=== PATIENT | male | born 1980 ===

== ENCOUNTER 2018-02-02 14:32 | Emergency (ER) | payer BC ==
[2018-02-02] MEDS ORDERED: Albuterol 0.083% Inhal Sol (2.5 mg/3 mL) UD INH ONE (15:39)
[2018-02-02] MEDS ORDERED: Albuterol-Ipratrop 3 mg / 0.5 (3 ml) UD ONE (15:49)
[2018-02-02] MEDS ORDERED: Albuterol 0.083% Inhal Sol (2.5 mg/3 mL) UD ONE (15:59)
--- NOTE | 2018-02-02 16:15 | ED PDOC ---
HPI: Influenza Time Seen by Provider: 02/02/18 15:02 Chief Complaint: Cough, Cold, Congestion Chief Complaint (Provider): Cough, congestion History Per: Patient Exam Limitations: no limitations Symptoms include: denies: fever, vomiting, diarrhea, chest pain Additional complaint(s):: 37 year old male presents to the ED complaining of cough and congestion for a week with yellowish and whitish flem for about a week. Patient is also complaining of back pain when he coughs but denies chest pain, fever, vomiting, and diarrhea. He states he has a sore throat and his whole body aches. PCP: none provided Past Medical History Reviewed: Historical Data, Nursing Documentation, Vital Signs Vital Signs: Last Vital Signs Temp 98.4 F 02/02/18 14:49 Pulse 95 H 02/02/18 14:49 Resp 20 02/02/18 14:49 BP 132/80 02/02/18 14:49 Pulse Ox 97 02/02/18 14:49 - Medical History PMH: No Chronic Diseases - Surgical History Surgical History: No Surg Hx - Family History Family History: States: Unknown Family Hx - Social History Current smoker - smoking cessation education provided: Yes (half pack of cigarettes a day) - Home Medications Home Medications: Ambulatory Orders Medication Instructions Recorded Albuterol HFA [Ventolin HFA 90 1 - 2 puff IH Q4H PRN #1 bottle 02/02/18 mcg/actuation (8 g)] Azithromycin [Zithromax] 250 mg PO DAILY #6 tab 02/02/18 - Allergies Allergies/Adverse Reactions: Allergies Allergy/AdvReac Type Severity Reaction Status Date / Time naproxen [From Aleve] Allergy RASH Verified 02/02/18 14:49 Review of Systems ROS Statement: Except As Marked, All Systems Reviewed And Found Negative Constitutional: Positive for: Other (whole body ache). Negative for: Fever ENT: Positive for: Nose Congestion, Throat Pain (sore throat) Cardiovascular: Negative for: Chest Pain Respiratory: Positive for: Cough Gastrointestinal: Negative for: Vomiting, Diarrhea Musculoskeletal: Positive for: Back Pain (with cough) Physical Exam - Reviewed Nursing Documentation Reviewed: Yes Vital Signs Reviewed: Yes - Physical Exam Appears: Positive for: Non-toxic, No Acute Distress Head Exam: Positive for: ATRAUMATIC, NORMOCEPHALIC Skin: Positive for: Normal Color, Warm, Dry Eye Exam: Positive for: Normal appearance ENT: Positive for: Normal ENT Inspection Neck: Positive for: Normal, Painless ROM Cardiovascular/Chest: Positive for: Regular Rate, Rhythm. Negative for: Murmur Respiratory: Positive for: Wheezing (slight wheeze). Negative for: Respiratory Distress Gastrointestinal/Abdominal: Positive for: Normal Exam, Soft. Negative for: Tenderness Back: Positive for: Normal Inspection. Negative for: L CVA Tenderness, R CVA Tenderness Extremity: Positive for: Normal ROM Neurologic/Psych: Positive for: Alert, Oriented. Negative for: Motor/Sensory Deficits Medical Decision Making Medical Decision Making: Initial Impression: cough. r/o strep and flu Initial Plan: Chest X-ray Albuterol 2.5mg INH Throat culture Peak flow Influenza A B Stat Rapid strep 15:58 Chest X-ray FINDINGS: LUNGS: No active pulmonary disease. PLEURA: No significant pleural effusion identified. No pneumothorax apparent. CARDIOVASCULAR: Normal. OSSEOUS STRUCTURES: No significant abnormalities. VISUALIZED UPPER ABDOMEN: Normal. OTHER FINDINGS: None. IMPRESSION: No active disease. 16:30 Rapid strep results were negative and patient has no PE risk factors. Patient is positive for sick contacts. Scribe Attestation: Documented by Renato Bates acting as a scribe for Daniel Mcclure MD. Provider Scribe Attestation: All medical record entries made by the Scribe were at my direction and personally dictated by me. I have reviewed the chart and agree that the record accurately reflects my personal performance of the history, physical exam, medical decision making, and the department course for this patient. I have also personally directed, reviewed, and agree with the discharge instructions and disposition. - ECG O2 Sat by Pulse Oximetry: 97 (RA) Pulse Ox Interpretation: Normal Disposition - Clinical Impression Clinical Impression: Cough - Disposition Condition: IMPROVED Additional Instructions: follow up with your primary doctor in 2 days for reevaluation return to the ED with any worsening or concerning symptoms Prescriptions: Albuterol HFA [Ventolin HFA 90 mcg/actuation (8 g)] 1 - 2 puff IH Q4H PRN #1 bottle PRN Reason: Wheezing Azithromycin [Zithromax] 250 mg PO DAILY #6 tab Instructions: Cough in Adults Forms: [facility] (Libyan)
--- NOTE | 2018-02-02 16:15 | RAD ---
HISTORY: cough COMPARISON: No prior. TECHNIQUE: Chest PA and lateral FINDINGS: LUNGS: No active pulmonary disease. PLEURA: No significant pleural effusion identified. No pneumothorax apparent. CARDIOVASCULAR: Normal. OSSEOUS STRUCTURES: No significant abnormalities. VISUALIZED UPPER ABDOMEN: Normal. OTHER FINDINGS: None. IMPRESSION: No active disease.
[2018-02-02 17:27] VITALS: BP 125/84; PULSE 86; RESP 18; TEMP 99.1; O2SAT 96
== END 2018-02-02 17:27 | disposition home or self-care (01) ==
LOC: H.ER 14:32
DX: R05 Cough (principal); Z88.6 Allergy status to analgesic agent